=== PATIENT | male | born 1960 | race African-American/Black ===

== ENCOUNTER 2016-12-19 11:23 | Emergency (ER) | payer MEDICAID, OTHER ==
[~2016-12-19] VITALS: Ht 175.3 cm; Wt 85.3 kg
--- NOTE | 2016-12-19 11:23 | NUR ---
CALLED THE PATIENT IN THE [place], PATIENT IS NOT AROUND.
--- NOTE | 2016-12-19 11:40 | NUR ---
BIB SELF C/O L LEG, LOWER BACK, L HIP AND L INNER THIGH X 4-5 MONTHS, DENIES RECENT FALL. NAD NOTED, VSS. RESP EVEN AND UNLABORED. WAITING FOR MD OROZCO.
[2016-12-19 12:42] VITALS: BP 129/86
--- NOTE | 2016-12-19 12:44 | NUR ---
Patient discharged to home in stable condition. Written and verbal after care instructions given. Patient verbalizes understanding of instruction. Prescription given.
== END 2016-12-19 12:43 | disposition home or self-care (01) ==
LOC: ER 11:26
DX: M54.5 Low back pain (principal); G89.29 Other chronic pain; Z88.0 Allergy status to penicillin
CPT/HCPCS: A4606; J1885; Z7610

== ENCOUNTER 2017-08-02 17:58 | Emergency (ER) | payer BC, OTHER ==
[~2017-08-02] VITALS: Ht 175.3 cm; Wt 86.2 kg
[2017-08-02 18:00] VITALS: BP 152/101
== END 2017-08-02 18:47 | disposition home or self-care (01) ==
LOC: ER 18:01
DX: M54.5 Low back pain (principal); M54.2 Cervicalgia; R51 Headache; Z88.0 Allergy status to penicillin; V49.49XA Driver injured in collision with other motor vehicles in traffic accident, initial encounter; Y93.89 Activity, other specified; Y92.413 State road as the place of occurrence of the external cause; Y99.8 Other external cause status
CPT/HCPCS: A4606; Z7502; Z7610